=== PATIENT | male | born 1995 | race Caucasian/White ===

== ENCOUNTER 2021-08-16 19:54 | Emergency (ER) | payer OTHER ==
[~2021-08-16] VITALS: Ht 175.3 cm; Wt 58.1 kg
[2021-08-16] MEDS ORDERED: EPINEPHRINE 1:1000 1 MG/ML AMP INJ ONE ×2 (22:30→23:45)
[2021-08-16] MEDS ORDERED: METHYLPREDNISOLONE SOD SUCC 125 MG/2 ML VIAL IM ONE (22:30)
[2021-08-16] MEDS: DIPHENHYDRAMINE 50MG/ML VIAL IM PRN (22:48)
[2021-08-16 23:00] VITALS: BP 103/77
[2021-08-17] MEDS: DIPHENHYDRAMINE 50MG/ML VIAL IM PRN (00:12)
[2021-08-17] MEDS ORDERED: DIPH25CA83 MT (01:17)
[2021-08-17] MEDS ORDERED: P50 MT (01:17)
== END 2021-08-17 02:06 | disposition home or self-care (01) ==
LOC: ER 19:54
DX: T78.49XA Other allergy, initial encounter (principal); X58.XXXA Exposure to other specified factors, initial encounter; L50.9 Urticaria, unspecified
CPT/HCPCS: 96372; 99284; J1200; J2930; J3490

== ENCOUNTER 2021-08-19 13:22 | Emergency (ER) | payer OTHER ==
[~2021-08-19] VITALS: Ht 182.9 cm; Wt 58.0 kg
[~2021-08-19 13:22] MED LIST: DIPH25CA83 MT; P50 MT
[2021-08-19] MEDS ORDERED: DIPHENHYDRAMINE 50MG/ML VIAL IM ONE (16:15)
[2021-08-19] MEDS ORDERED: METHYLPREDNISOLONE SOD SUCC 125 MG/2 ML VIAL IM ONE (16:15)
[2021-08-19] MEDS ORDERED: DIPH25CA83 MT (17:50)
[2021-08-19] MEDS ORDERED: P20 MT (17:50)
[2021-08-19 18:12] VITALS: BP 122/83
== END 2021-08-19 18:14 | disposition home or self-care (01) ==
LOC: ER 13:22
DX: L50.9 Urticaria, unspecified (principal); T78.40XA Allergy, unspecified, initial encounter; X58.XXXA Exposure to other specified factors, initial encounter
CPT/HCPCS: 96372; 99284; J1200; J2930